=== PATIENT | male | born 1995 | race Caucasian/White ===

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

== ENCOUNTER 2017-02-01 19:17 | Emergency (ER) | payer MEDICAID ==
[~2017-02-01] VITALS: Ht 177.8 cm; Wt 104.0 kg
[~2017-02-01 19:17] MED LIST changes: -FAMO-18 PO; +FAMO-96 PO; +IBUP400T22 PO
[2017-02-01 19:21] VITALS: Ht 177.8 cm; Wt 104.0 kg
[2017-02-01] MEDS ORDERED: ONDANSETRON (ODT) 4 MG TAB ODT STA (19:26)
[2017-02-01] MEDS ORDERED: LIDOCAINE/MYLANTA 40 ML BTL PO ONE (19:30)
--- NOTE | 2017-02-01 19:40 | ERD ---
ER Documentation Chief Complaint Date/Time DATE: 02/01/17 TIME: 19:34 Chief Complaint mid abd/epigastric pain x 6 days, worse pass 2 days. +n/v HPI 21-year-old male presents here in emergency department for complains of epigastric pain for 6 day, patient describes the pain as sharp pain, 6/10 scale , compared with vomiting. Patient denies any fever or chills. Patient denies any fever or chills. Patient denies any diarrhea or constipation. Patient did not take any medications to help with symptoms ROS All systems reviewed and are negative except as per history of present illness. Medications Home Meds Active Scripts Ibuprofen* (Motrin*) 400 Mg Tab, 400 MG PO Q8, #30 TAB Prov:ALVIN ANGELA PA-C 11/20/16 Famotidine* (Pepcid*) 20 Mg Tablet, 20 MG PO BID for 4 Days, #30 TAB Prov:MIMI GALLOWAY PA-C 06/27/16 Ondansetron (Ondansetron Odt) 4 Mg Tab.rapdis, 4 MG PO Q6H Y for NAUSEA AND/OR VOMITING, #10 TAB Prov:MIMI GALLOWAY PA-C 06/27/16 Allergies Allergies: Coded Allergies: No Known Allergy (Unverified , 06/27/16) PMhx/Soc Medical and Surgical Hx: pt denies Medical Hx, pt denies Surgical Hx Hx Alcohol Use: No Hx Substance Use: No Hx Tobacco Use: No FmHx Family History: No coronary disease, No diabetes, No other Physical Exam Vitals Vital Signs Date Time Temp Pulse Resp B/P Pulse Ox O2 Delivery O2 Flow Rate FiO2 02/01/17 19:21 98.9 79 20 142/85 97 Physical Exam GENERAL: The patient is well developed and appropriate for usual state of health, in no apparent distress. CHEST: Clear to auscultation bilaterally. There are no rales, wheezes or rhonchi. HEART: Regular rate and rhythm. No murmurs, clicks, rubs or gallops. No S3 or S4. ABDOMEN: Soft, nontender and nondistended. Good bowel sounds. No rebound or guarding. No gross peritonitis. No gross organomegaly or masses. No Jade sign or McBurney point tenderness. BACK: No midline or flank tenderness. EXTREMITIES: Equal pulses bilaterally. There is no peripheral clubbing, cyanosis or edema. No focal swelling or erythema. Full range of motion. Grossly neurovascularly intact. NEURO: Alert and oriented. Cranial nerves 2-12 intact. Motor strength in all 4 extremities with 5/5 strength. Sensation grossly intact. Normal speech and gait. SKIN: There is no apparent rash or petechia. The skin is warm and dry. HEMATOLOGIC AND LYMPHATIC: There is no evidence of excessive bruising or lymphedema. No gross cervical, axillary, or inguinal lymphadenopathy. Result Diagram: 02/01/17193302/01/171933 Results 24 hrs Laboratory Tests Test 02/01/17 19:34 White Blood Count 6.110^3/ul Red Blood Count 4.6610^6/ul Hemoglobin 13.6g/dl Hematocrit 38.8% Mean Corpuscular Volume 83.3fl Mean Corpuscular Hemoglobin 29.2pg Mean Corpuscular Hemoglobin Concent 35.1g/dl Red Cell Distribution Width 12.7% Platelet Count 73551^3/UL Mean Platelet Volume 10.1fl Neutrophils % 62.3% Lymphocytes % 30.0% Monocytes % 6.9% Eosinophils % 0.3% Basophils % 0.3% Nucleated Red Blood Cells % 0.0/100WBC Neutrophils # 3.810^3/ul Lymphocytes # 1.810^3/ul Monocytes # 0.410^3/ul Eosinophils # 0.010^3/ul Basophils # 0.010^3/ul Nucleated Red Blood Cells # 0.010^3/ul Urine Color YELLOW Urine Clarity CLEAR Urine pH 5.0 Urine Specific [place] 1.033 Urine Ketones TRACEmg/dL Urine Nitrite NEGATIVEmg/dL Urine Bilirubin NEGATIVEmg/dL Urine Urobilinogen 1+mg/dL Urine Leukocyte Esterase NEGATIVELeu/ul Urine Microscopic RBC 2/HPF Urine Microscopic WBC 1/HPF Urine Mucus MANY/HPF Urine Hemoglobin NEGATIVEmg/dL Urine Glucose NEGATIVEmg/dL Urine Total Protein 1+mg/dl Sodium Level 147mmol/L Potassium Level 4.0mmol/L Chloride Level 105mmol/L Carbon Dioxide Level 26mmol/L Anion Gap 20 Blood Urea Nitrogen 12mg/dl Creatinine 0.82mg/dl Glucose Level 101mg/dl Calcium Level 9.5mg/dl Total Bilirubin 0.3mg/dl Direct Bilirubin 0.00mg/dl Indirect Bilirubin 0.3mg/dl Aspartate Amino Transf (AST/SGOT) 20IU/L Alanine Aminotransferase (ALT/SGPT) 36IU/L Alkaline Phosphatase 102IU/L Total Protein 8.7g/dl Albumin 4.7g/dl Globulin 4.00g/dl Albumin/Globulin Ratio 1.17 Lipase 36U/L Current Medications Medications (Trade) Dose Ordered Sig/Siddharth Route PRN Reason Start Time Stop Time Status Last Admin Dose Admin Miscellaneous Medication (Gi Cocktail (2)) 40 ml ONCE ONCE PO 02/01/17 19:30 02/01/17 19:31 DC 02/01/17 19:37 Ondansetron HCl (Zofran Odt) 4 mg ONCE STAT ODT 02/01/17 19:26 02/01/17 19:27 DC 02/01/17 19:34 GI cocktail and Zofran was given here in emergency department, verbalized feeling much better afterwards. PROCEDURE: US Abdomen Right Upper Quadrant. CLINICAL INDICATION: Abdominal pain TECHNIQUE: Multiple real-time longitudinal and transverse images were acquired of the patient's right upper quadrant abdomen utilizing a curved array transducer. COMPARISON: None FINDINGS: Liver: The liver is normal in size and the echotexture appears unremarkable. No mass is evident. There is antegrade flow of the main portal vein. Gallbladder: Appears unremarkable and no stones are identified. There is no pericholecystic fluid. Bile ducts: There is no significant intra or extrahepatic bile duct dilatation. No choledocholiths are seen within the visualized portions. The common bile duct measures 3.9 mm in cross diameter. Pancreas: The pancreas is obscured by bowel gas. Right adrenal : No mass is evident. Right kidney: Normal in echotexture andl in size. The right kidney measures 10.2 cm in length. No mass, pathological calcification, or hydronephrosis is evident. Peritoneum: There is no free intraperitoneal fluid IMPRESSION: 1. Normal appearing gallbladder without cholelithiasis or bile duct dilatation. 2. The pancreas is obscured by bowel gas. 3. The liver and right kidney appear normal. 4. No free fluid is identified. Kinjal Quiroz Physician Date Time Electronically viewed and signed by Kinjal Quiroz Physician on 02/01/2017 20:17 RH/ CC: JAI SIMMONS NP Procedures/MDM Medical Decision Making: Patient's symptoms likely consistent with gastritis with acid reflux disease. Liver function tests are normal, lipase is normal. No symptoms of choledocholithiasis, pancreatitis cholecystitis. No suspicion for any bowel perforation, gastric perforation. There is low suspicion for abdominal emergencies at this time. Patients abdominal exam is normal at this time. Patients radiology exam does not show any abdominal emergencies at this time. There is low suspicion for appendicitis, cholecystitis, abdominal aortic aneurysms or peritonitis at this time. There is low suspicion for sepsis. Patient appears well and is hemodynamically stable. Disposition: Home. Condition: Stable Prescription Mylanta, omeprazole, tramadol, Zofran Instructions: Patient is advised to take medications as prescribed. Patient is advised to rest, increase fluid intake and do brat diet for next 1-2 days and progress as tolerated. Patient is advised that if symptoms are worse, severe abdominal pain, uncontrolled vomiting, high fever, severe flank pain, worst signs and symptoms, to return to the emergency department immediately. Otherwise, patient can follow up with primary care doctor in 5-7 days. Departure Diagnosis: Primary Impression: GERD (gastroesophageal reflux disease) Esophagitis presence: without esophagitis Qualified Code: K21.9 - Gastroesophageal reflux disease without esophagitis Additional Impression: Gastritis Gastritis type: unspecified gastritis Chronicity: acute Gastritis bleeding : without bleeding Qualified Code: K29.00 - Acute gastritis without hemorrhage, unspecified gastritis type Condition: Stable Patient Instructions: Gastritis (Adult), Gastroesophageal Reflux Disease (GERD) Additional Instructions: Patient is advised to take medications as prescribed. Patient is advised to rest , increase fluid intake and do brat diet for next 1-2 days and progress as tolerated. Patient is advised that if symptoms are worse, severe abdominal pain , uncontrolled vomiting, high fever, severe flank pain, worst signs and symptoms , to return to the emergency department immediately. Otherwise, patient can follow up with primary care doctor in 5-7 days. JAI SIMMONS NP Feb 01, 2017 19:40
[2017-02-01 19:46] LABS: BASOPHILS % 0.3 % (0.0-2.0); EOSINOPHILS % 0.3 % (0.0-7.0); HEMATOCRIT 38.8 % (42.0-52.0); HEMOGLOBIN 13.6 g/dl (14.0-18.0); LYMPHOCYTES # 1.8 10^3/ul (0.8-2.9); MEAN CORPUSCULAR HEMOGLOBIN 29.2 pg (29.0-33.0); MEAN CORPUSCULAR HGB CONC 35.1 g/dl (32.0-37.0); MEAN CORPUSCULAR VOLUME 83.3 fl (72.0-104.0); MEAN PLATELET VOLUME 10.1 fl (7.4-10.4); MONOCYTE # 0.4 10^3/ul (0.3-0.9); MONOCYTES % 6.9 % (0.0-13.0); NEUTROPHIL # 3.8 10^3/ul (1.6-7.5); NEUTROPHILS % 62.3 % (30.0-74.0); PLATELET COUNT 288 10^3/UL (140-415); RED BLOOD COUNT 4.66 10^6/ul (4.70-6.10); RED CELL DISTRIBUTION WIDTH 12.7 % (11.5-14.5); WHITE BLOOD COUNT 6.1 10^3/ul (4.8-10.8)
[2017-02-01 19:53] LABS: ADD UMIC YES; UR ASCORBIC ACID 40 mg/dL (NEGATIVE); UR BILIRUBIN (Dip) NEGATIVE (NEGATIVE); UR BLOOD (Dip) NEGATIVE (NEGATIVE); UR CLARITY CLEAR (CLEAR); UR COLOR YELLOW (YELLOW); UR GLUCOSE (Dip) NEGATIVE (NEGATIVE); UR KETONES (Dip) TRACE mg/dL (NEGATIVE); UR LEUKOCYTE ESTERASE (Dip) NEGATIVE Leu/ul (NEGATIVE); UR MUCUS MANY /HPF (NONE SEEN); UR NITRITE (Dip) NEGATIVE (NEGATIVE); UR RBC 2 /HPF (0-5); UR SPECIFIC GRAVITY (Dip) 1.033 (1.003-1.030); UR TOTAL PROTEIN (Dip) 1+ mg/dl (NEGATIVE); UR UROBILINOGEN (Dip) 1+ mg/dL (NEGATIVE)
[2017-02-01 20:03] LABS: ALBUMIN 4.7 g/dl (3.3-4.9); ALBUMIN/GLOBULIN RATIO 1.17; BILIRUBIN,INDIRECT 0.3 mg/dl (0-1.1); BILIRUBIN,TOTAL 0.3 mg/dl (0.2-1.3); CALCIUM 9.5 mg/dl (8.4-10.2); CREATININE 0.82 mg/dl (0.61-1.24); TOTAL PROTEIN 8.7 g/dl (6.1-8.1)
--- NOTE | 2017-02-01 20:18 | RADRPT ---
PROCEDURE: US Abdomen Right Upper Quadrant. CLINICAL INDICATION: Abdominal pain TECHNIQUE: Multiple real-time longitudinal and transverse images were acquired of the patient's [facility] upper quadrant abdomen utilizing a curved array transducer. COMPARISON: None FINDINGS: Liver: The liver is normal in size and the echotexture appears unremarkable. No mass is evident. T here is antegrade flow of the main portal vein. Gallbladder: Appears unremarkable and no stones are identified. There is no pericholecystic fluid. Bile ducts: There is no significant intra or extrahepatic bile duct dilatation. No choledocholiths a re seen within the visualized portions. The common bile duct measures 3.9 mm in cross diameter. Pancreas: The pancreas is obscured by bowel gas. Right adrenal : No mass is evident. Right kidney: Normal in echotexture andl in size. The right kidney measures 10.2 cm in length. No ma ss, pathological calcification, or hydronephrosis is evident. Peritoneum: There is no free intraperitoneal fluid IMPRESSION: 1. Normal appearing gallbladder without cholelithiasis or bile duct dilatation. 2. The pancreas is obscured by bowel gas. 3. The liver and right kidney appear normal. 4. No free fluid is identified. Physician Brayden Date Time Electronically viewed and signed by Physician Brayden on 02/01/2017 20:17 /
[2017-02-01] MEDS ORDERED: TRAM50TA2 PO (20:25)
[2017-02-01] MEDS ORDERED: ONDA4TAB14 PO (20:25)
[2017-02-01] MEDS ORDERED: OMEP20CA16 PO (20:25)
[2017-02-01] MEDS ORDERED: MAG-19 PO (20:25)
== END 2017-02-01 20:45 | disposition home or self-care (01) ==
LOC: FTE 19:17
DX: K21.9 Gastro-esophageal reflux disease without esophagitis (principal); K29.00 Acute gastritis without bleeding; R11.2 Nausea with vomiting, unspecified
CPT/HCPCS: 36415; 76705; 80053; 81001; 83690; 85025; Z7502; Z7610

== ENCOUNTER 2017-02-02 12:42 | Emergency (ER) | payer MEDICAID ==
[~2017-02-02] VITALS: Ht 167.6 cm; Wt 103.5 kg
[~2017-02-02 12:42] MED LIST changes: +MAG-19 PO; +OMEP20CA16 PO; +TRAM50TA2 PO
[2017-02-02 12:50] VITALS: Ht 167.6 cm; Wt 103.5 kg
[2017-02-02] MEDS ORDERED: METOCLOPRAMIDE 10 MG TAB PO ONE (13:30)
--- NOTE | 2017-02-02 13:46 | ERD ---
ER Documentation Chief Complaint Date/Time DATE: 02/02/17 TIME: 13:41 Chief Complaint Complains of vomiting x 2 since this am HPI 21-year-old male presenting to the emergency department complaining of epigastric pain after meals and couple episodes of nonbilious nonbloody postprandial vomiting for the past 8 days. Patient was evaluated at this facility yesterday. Patient was given medications for gastritis however he was not able to strip picker the medications yet. Patient denies diarrhea, constipation. Patient states that he received an ultrasound of the gallbladder which is unremarkable. Blood work was normal normal. He denies any fever. Patient denies any abdominal pain at this moment ROS All systems reviewed and are negative except as per history of present illness. Medications Home Meds Active Scripts Tramadol HCl (Tramadol HCl) 50 Mg Tablet, 50 MG PO Q6 Y for SEVERE PAIN LEVEL 7- 10, #20 TAB Prov:JAI SIMMONS NP 02/01/17 Omeprazole* (Omeprazole*) 20 Mg Capsule.dr, 20 MG PO DAILY, #30 Prov:JAI SIMMONS NP 02/01/17 Ondansetron (Ondansetron Odt) 4 Mg Tab.rapdis, 4 MG PO Q8 Y for NAUSEA AND/OR VOMITING, #30 TAB Prov:JAI SIMMONS NP 02/01/17 Magaldrate/Simethicone* (Mylanta*) 355 Ml Susp, 30 ML PO QID Y for GASTROINTESTINAL UPSET, #1 BOTTLE Prov:JAI SIMMONS NP 02/01/17 Ibuprofen* (Motrin*) 400 Mg Tab, 400 MG PO Q8, #30 TAB Prov:ALVIN ANGELA PA-C 11/20/16 Famotidine* (Pepcid*) 20 Mg Tablet, 20 MG PO BID for 4 Days, #30 TAB Prov:MIMI GALLOWAY PA-C 06/27/16 Ondansetron (Ondansetron Odt) 4 Mg Tab.rapdis, 4 MG PO Q6H Y for NAUSEA AND/OR VOMITING, #10 TAB Prov:MIMI GALLOWAY PA-C 06/27/16 Allergies Allergies: Coded Allergies: No Known Allergy (Unverified , 06/27/16) PMhx/Soc History of Surgery: No Anesthesia Reaction: No Hx Neurological Disorder: No Hx Respiratory Disorders: No Hx Cardiac Disorders: No Hx Psychiatric Problems: No Hx Miscellaneous Medical Probl: No Hx Alcohol Use: No Hx Substance Use: No Hx Tobacco Use: No Smoking Status: Never smoker Physical Exam Vitals Vital Signs Date Time Temp Pulse Resp B/P Pulse Ox O2 Delivery O2 Flow Rate FiO2 02/02/17 12:50 98.4 66 20 131/77 98 Physical Exam GENERAL: well-developed/well-nourished, in no apparent distress, non-toxic appearing HENT: NC/AT, moist mucous membranes EYES: Conjunctiva normal NECK: Supple, no lymphadenopathy PULM: CTA bilaterally, no rales, rhonchi, or wheezing heard CV: Normal S1S2, RRR, good capillary refill GI: Soft, non-distended, mild tender to palpation epigastric region Normal bowel sounds, no masses or organomegaly felt on exam No gross peritonitis, no bruits Negative Rovsing, negative Jade, negative McBurney's point, Negative CVAT BACK: No masses EXT: No clubbing, cyanosis, or edema NEURO: Alert and Orientated SKIN: Intact, normal turgor PSYCH: Normal mood and mentation Results 24 hrs Current Medications Medications (Trade) Dose Ordered Sig/Siddharth Route PRN Reason Start Time Stop Time Status Last Admin Dose Admin Metoclopramide HCl (Reglan) 5 mg ONCE ONCE PO 02/02/17 13:30 02/02/17 13:35 DC Procedures/MDM This is a 21-year-old male presenting to the emergency department for the second time in the past couple days for epigastric pain and postprandial nonbilious nonbloody vomiting after meals for the past 8 days which is likely due to gastritis. There was no evidence of cholelithiasis, pancreatitis cholecystitis, cholangitis, bleeding ulcers at this time. Patient was evaluated yesterday and had a full workup however he was unable to strip picker his medications today. I discussed with him to strip picker his medications and try the medications out to see if they will help him. I have discussed with him if the [employer] medications do not help then to return to the ER or to follow-up with his primary care physician to get a referral to see a medical records technician. Patient was given Reglan in the ED and passed the fluid challenge test. Patient is hemodynamically the stable, he appears well and to be discharged home to follow-up with his primary care physician. Departure Diagnosis: Primary Impression: Vomiting Condition: Stable Patient Instructions: Treating Gastritis, Gastritis Vs. Ulcer, Vomiting (6Y- Adult) Referrals: NO PRIMARY,CARE PHYSICIAN (PCP) Additional Instructions: FOLLOW UP WITH YOUR PRIMARY CARE PHYSICIAN TOMORROW.Return to this facility if you are not improving as expected. Return to this facility if you are not improving as expected. ANDIE KIRK PA-C Feb 02, 2017 13:46
== END 2017-02-02 14:08 | disposition home or self-care (01) ==
LOC: FTE 12:42
DX: R11.10 Vomiting, unspecified (principal)
CPT/HCPCS: Z7502; Z7610; 99283

== ENCOUNTER 2017-10-29 08:18 | Emergency (ER) | END 2017-10-29 11:57 | disposition home or self-care (01) ==

== ENCOUNTER → 2017-10-30 | Emergency (ER) | END | disposition home or self-care (01) ==

== ENCOUNTER 2018-11-25 22:19 | Emergency (ER) | payer SELFPAY ==
[~2018-11-25] VITALS: Wt 112.9 kg
[~2018-11-25 22:19] MED LIST changes: +ACET500C5 PO; +CLIN300C10 PO; +IBUP-1561 PO; -IBUP400T22 PO; +NAPR-985 PO
[2018-11-25 22:23] VITALS: BP 163/74; PULSE 85; RESP 20
[2018-11-27] MEDS ORDERED: IBUP-1542 PO (13:01)
[2018-11-27] MEDS ORDERED: ONDA4TAB14 PO (13:01)
== END 2018-11-26 00:49 | disposition left against medical advice (07) ==
LOC: FTE 22:19
DX: Z53.21 Procedure and treatment not carried out due to patient leaving prior to being seen by health care provider (principal)

== ENCOUNTER 2018-11-27 11:04 | Emergency (ER) | payer SELFPAY ==
[~2018-11-27] VITALS: Wt 89.0 kg
[2018-11-27 11:11] VITALS: BP 140/89; PULSE 90; RESP 18
[2018-11-27] MEDS ORDERED: KETOROLAC 15 MG INJ IV STA (11:42)
[2018-11-27] MEDS ORDERED: SOD CHLORIDE 0.9% 1,000 ML IV STA (11:42)
[2018-11-27] MEDS ORDERED: ONDANSETRON 4 MG INJ IV STA (11:42)
[2018-11-27] MEDS ORDERED: ONDA4TAB14 PO (13:01)
[2018-11-27] MEDS ORDERED: IBUP-1542 PO (13:01)
--- NOTE | 2018-11-27 13:22 | ERD ---
ER Documentation Chief Complaint Chief Complaint left side abd pain HPI 23-year-old male with history of gastritis presents to the ED complaining of 1 week of intermittent waxing and waning left flank pain. Patient states he had this episode again this morning about 30 minutes after eating breakfast. He states pain is sharp, localized to his left flank and radiates towards his left groin. He reports feeling nauseous but has had no vomiting episodes. Denies any urinary symptoms. Denies any associated fevers or chills. He states he has a significant family history of kidney stones. He denies any personal history of kidney stones. No other symptoms. ROS All systems reviewed and are negative except as per history of present illness. Medications Home Meds Active Scripts Ibuprofen* (Motrin*) 600 Mg Tab, 600 MG PO Q6H PRN for PAIN AND OR ELEVATED TEMP, #30 TAB Prov:JEWELL JANEC 11/27/18 Ondansetron (Ondansetron Odt) 4 Mg Tab.rapdis, 4 MG PO Q6H PRN for NAUSEA AND/OR VOMITING, #10 TAB Prov:JEWELL JANEC 11/27/18 Clindamycin Hcl* (Clindamycin Hcl*) 300 Mg Capsule, 300 MG PO TID for 10 Days, CAP Prov:JAI SIMMONS NP 10/30/17 Acetaminophen* (Tylophen*) 500 Mg Capsule, 1 CAP PO Q4 PRN for PAIN AND OR ELEVATED TEMP, #30 CAP Prov:ANDIE KIRKC 10/29/17 Naproxen* (Naprosyn*) 500 Mg Tablet, 500 MG PO BID PRN for PAIN AND/OR INFLAM MATION, #30 TAB Prov:ANDIE KIRKC 10/29/17 Tramadol HCl (Tramadol HCl) 50 Mg Tablet, 50 MG PO Q6 PRN for SEVERE PAIN LEVEL 7-10, #20 TAB Prov:JAI SIMMONS NP 02/01/17 Omeprazole* (Omeprazole*) 20 Mg Capsule.dr, 20 MG PO DAILY, #30 Prov:AJI SIMMONS NP 02/01/17 Ondansetron (Ondansetron Odt) 4 Mg Tab.rapdis, 4 MG PO Q8 PRN for NAUSEA AND/OR VOMITING, #30 TAB Prov:JAI SIMMONS DEISY Alvares NP 02/01/17 Magaldrate/Simethicone* (Mylanta*) 355 Ml Susp, 30 ML PO QID PRN for GASTROINTESTINAL UPSET, #1 BOTTLE Prov:JAI SIMMONS DEISY Alvares NP 02/01/17 Ibuprofen* (Motrin*) 400 Mg Tab, 400 MG PO Q8, #30 TAB Prov:ALVIN ANGELA PA-C 11/20/16 Famotidine* (Pepcid*) 20 Mg Tablet, 20 MG PO BID for 4 Days, #30 TAB Prov:MIMI GALLOWAY PA-C 06/27/16 Ondansetron (Ondansetron Odt) 4 Mg Tab.rapdis, 4 MG PO Q6H PRN for NAUSEA AND/OR VOMITING, #10 TAB Prov:MIMI GALLOWAY PA-C 06/27/16 Allergies Allergies: Coded Allergies: No Known Allergy (Unverified , 06/27/16) PMhx/Soc History of Surgery: No Anesthesia Reaction: No Hx Neurological Disorder: No Hx Respiratory Disorders: No Hx Cardiac Disorders: Yes (HEART MURMUR) Hx Psychiatric Problems: No Hx Miscellaneous Medical Probl: No Hx Alcohol Use: No Hx Substance Use: No Hx Tobacco Use: No Smoking Status: Never smoker Physical Exam Vitals Vital Signs Date Temp Pulse Resp B/P (MAP) Pulse Ox O2 O2 Flow FiO2 Time Delivery Rate 11/27/18 98.7 90 18 140/89 99 11:11 (106) Physical Exam Const: No acute distress Head: Atraumatic Eyes: Normal Conjunctiva ENT: Normal External Ears, Nose and Mouth. Neck: Full range of motion. No meningismus. Resp: Clear to auscultation bilaterally Cardio: Regular rate and rhythm, no murmurs Abd: Soft, non tender, non distended. Negative Jade's, negative McBurney's. Normal bowel sounds. No rebound, no guarding. Skin: No petechiae or rashes Back: No midline. + Left CVA tenderness. Ext: No cyanosis, or edema Neur: Awake and alert Psych: Normal Mood and Affect Result Diagram: 11/27/18 1158 11/27/18 1159 Results 24 hrs Laboratory Tests Test 11/27/18 11:58 11/27/18 11:59 White Blood Count 6.2 10^3/ul Red Blood Count 5.06 10^6/ul Hemoglobin 14.2 g/dl Hematocrit 43.0 % Mean Corpuscular Volume 85.0 fl Mean Corpuscular Hemoglobin 28.1 pg Mean Corpuscular Hemoglobin Concent 33.0 g/dl Red Cell Distribution Width 12.6 % Platelet Count 298 10^3/UL Mean Platelet Volume 9.8 fl Immature Granulocytes % 0.300 % Neutrophils % 61.6 % Lymphocytes % 29.9 % Monocytes % 6.6 % Eosinophils % 1.1 % Basophils % 0.5 % Nucleated Red Blood Cells % 0.0 /100WBC Immature Granulocytes # 0.020 10^3/ul Neutrophils # 3.8 10^3/ul Lymphocytes # 1.9 10^3/ul Monocytes # 0.4 10^3/ul Eosinophils # 0.1 10^3/ul Basophils # 0.0 10^3/ul Nucleated Red Blood Cells # 0.0 10^3/ul Urine Color YELLOW Urine Clarity SLIGHTLY CLOUDY Urine pH 7.0 Urine Specific Breeding 1.026 Urine Ketones NEGATIVE mg/dL Urine Nitrite NEGATIVE mg/dL Urine Bilirubin NEGATIVE mg/dL Urine Urobilinogen 1+ mg/dL Urine Leukocyte Esterase NEGATIVE Jian/ul Urine Microscopic RBC 1 /HPF Urine Microscopic WBC 0 /HPF Urine Bacteria FEW /HPF Urine Mucus FEW /HPF Urine Hemoglobin NEGATIVE mg/dL Urine Glucose NEGATIVE mg/dL Urine Total Protein NEGATIVE mg/dl Sodium Level 145 mmol/L Potassium Level 3.8 mmol/L Chloride Level 107 mmol/L Carbon Dioxide Level 28 mmol/L Anion Gap 10 Blood Urea Nitrogen 13 mg/dl Creatinine 0.76 mg/dl Est Glomerular Filtrat Rate mL/min > 60 mL/min Glucose Level 102 mg/dl Calcium Level 9.7 mg/dl Total Bilirubin 0.6 mg/dl Direct Bilirubin 0.00 mg/dl Indirect Bilirubin 0.6 mg/dl Aspartate Amino Transf (AST/SGOT) 23 IU/L Alanine Aminotransferase (ALT/SGPT) 23 IU/L Alkaline Phosphatase 92 IU/L Total Protein 9.3 g/dl Albumin 4.6 g/dl Globulin 4.70 g/dl Albumin/Globulin Ratio 0.97 Lipase 43 U/L Current Medications Medications Dose Sig/Siddharth Start Time Status Last (Trade) Ordered Route PRN Stop Time Admin Dose Reason Admin Sodium 1,000 ml @ Q1H STAT 11/27/18 DC 11/27/18 Chloride 1,000 mls/hr IV 11:42 11/27/18 11:54 12:41 Ondansetron 4 mg ONCE STAT 11/27/18 DC 11/27/18 HCl (Zofran IV 11:42 11/27/18 11:55 Inj) 11:44 Ketorolac 15 mg ONCE STAT 11/27/18 DC 11/27/18 Tromethamine IV 11:42 11/27/18 11:55 (Toradol) 11:44 Procedures/MDM LABS & DIAGNOSTIC IMAGING: CBC: no e/o of systemic infection or severe anemia CMP: no e/o severe acidosis, alkalosis, renal failure, diabetic ketoacidosis, liver disease Lipase: no e/o pancreatitis Urine: no e/o acute infection or hematuria ED COURSE: The patient was given IV fluids, Toradol, Zofran The medication was well tolerated and the patient had market improvement in symptoms. The patient remained stable throughout ED course. MEDICAL DECISION MAKIN-year-old male presents with signs and symptoms consistent with renal colic. CBC and CMP is unremarkable. UA is unremarkable, however given pt's overall clinical picture, it is likely he passed a kidney stone. He has no fever here. Vital signs are stable. Symptoms improved status post IV fluids, Toradol, Zofran. I have low suspicion for hydronephrosis, renal obstruction, pyelonephritis, sepsis, or any other emergent condition. Workup not consistent with cholecystitis, pancreatitis or appendicitis. Patient is stable for discharge home. He was given copies of his lab results and told to follow-up with his primary care provider this week. Given Rx ibuprofen and Zofran. Strict return precautions were discussed. PRESCRIPTIONS: Zofran, ibuprofen SPECIALIST FOLLOW UP RECOMMENDED: None Patient has been advised to follow up with primary care in 1-2 days. Departure Diagnosis: Primary Impression: Flank pain Condition: Stable Patient Instructions: Kidney Stone, Passed, Kidney Stone W/ Colic Referrals: COMMUNITY CLINICS YOU HAVE RECEIVED A MEDICAL SCREENING EXAM AND THE RESULTS INDICATE THAT YOU DO NOT HAVE A CONDITION THAT REQUIRES URGENT TREATMENT IN THE EMERGENCY DEPARTMENT. FURTHER EVALUATION AND TREATMENT OF YOUR CONDITION CAN WAIT UNTIL YOU ARE SEEN IN YOUR DOCTORS OFFICE WITHIN THE NEXT 1-2 DAYS. IT IS YOUR RESPONSIBILITY TO MAKE AN APPOINTMENT FOR FOLOW-UP CARE. IF YOU HAVE A PRIMARY DOCTOR --you should call your primary doctor and schedule an appointment IF YOU DO NOT HAVE A PRIMARY DOCTOR YOU CAN CALL OUR PHYSICIAN REFERRAL HOTLINE AT IF YOU CAN NOT AFFORD TO SEE A PHYSICIAN YOU CAN CHOSE FROM THE FOLLOWING [facility] [address] [facility] [address] [address] [facility] [address] [facility] [facility] [address] [facility] [address] [facility]. [facility] [address] [facility]. [facility] [address] [facility] [facility]. [facility] YOU HAVE RECEIVED A MEDICAL SCREENING EXAM AND THE RESULTS INDICATE THAT YOU DO NOT HAVE A CONDITION THAT REQUIRES URGENT TREATMENT IN THE EMERGENCY DEPARTMENT. FURTHER EVALUATION AND TREATMENT OF YOUR CONDITION CAN WAIT UNTIL YOU ARE SEEN IN YOUR DOCTORS OFFICE WITHIN THE NEXT 1-2 DAYS. IT IS YOUR RESPONSIBILITY TO MAKE AN APPOINTMENT FOR FOLOW-UP CARE. IF YOU HAVE A PRIMARY DOCTOR --you should call your primary doctor and schedule and appointment IF YOU DO NOT HAVE A PRIMARY DOCTOR YOU CAN CALL OUR PHYSICIAN REFERRAL HOTLINE AT . IF YOU CAN NOT AFFORD TO SEE A PHYSICIAN YOU CAN CHOSE FROM THE FOLLOWING [facility]: [facility] [address] [place] [address] [facility] [address] [place] [address] [facility] + [facility] [address] [place] [address] [facility] URGENT CARE/SPECIALTIES Additional Instructions: Keep yourself hydrated, take the antinausea medications and the pain medication as needed. Take copies of your lab results and see her primary care provider within the week. Return here for any new or worsening symptoms. JEWELL JANE PA-C Nov 27, 2018 13:22
== END 2018-11-27 13:37 | disposition home or self-care (01) ==
LOC: FTE 11:04
DX: R10.9 Unspecified abdominal pain (principal); R11.0 Nausea
CPT/HCPCS: 36415; 80053; 81001; 83690; 85025; 96374; 96375; 99284; J1885; J2405; J7030; 81003